=== PATIENT | female | born 1985 | race Caucasian/White ===

== ENCOUNTER 2020-11-28 04:31 | Emergency (ER) | payer OTHER ==
[~2020-11-28] VITALS: Ht 177.8 cm; Wt 99.8 kg
[2020-11-28 04:31] VITALS: BP_SYST 164
--- NOTE | 2020-11-28 04:31 | NUR ---
Patient to ER bed 8 to gown for evaluation. Side rails up. Report given to november.
--- NOTE | 2020-11-28 04:40 | NUR ---
Patient BIB by family from home. C/O redness and swelling right mid axillary x 5 days. Per patient reported, possible spider bite, right mid axillary pain, redness, swelling, pain rate 8/10.
--- NOTE | 2020-11-28 04:43 | NUR ---
ER Dr. Meraz at bedside examining patient.
[2020-11-28] MEDS ORDERED: LIDOCAINE/EPI 1% 1:100000 20 ML VIAL INJ ONE (05:20)
--- NOTE | 2020-11-28 05:28 | NUR ---
I&D Procedure done by Dr Kt luna using sterile technique. Lidocaine 1% with Epinephrine used. Wound packed with . Adaptic, 4x4 and onofre to wound. amt of bleeding noted. Wound care discussed w/ patient. Pt tolerated procedure well. KATE Montague assisted Dr. Meraz at bedside.
[2020-11-28] MEDS: LIDOCAINE/EPI 1% 1:100000 20 ML VIAL INJ ONE (05:47)
[2020-11-28] MEDS ORDERED: SULF1TAB48 PO (05:50)
[2020-11-28] MEDS: SULFAMETHOXAZOLE/TRIMETHOPR DS 1 TABLET PO ONE (05:53)
[2020-11-28 06:01] VITALS: BP_SYST 164
--- NOTE | 2020-11-28 06:01 | NUR ---
Patient given written and verbal discharge instructions and verbalizes understanding. ER MD discussed with patient the results and treatment provided. Patient in stable condition. ID arm band removed. Rx of Bactrim given. Patient educated on pain management and to follow up with PMD. Pain Scale . Opportunity for questions provided and answered. Medication side effect fact sheet provided.
== END 2020-11-28 06:01 | disposition home or self-care (01) ==
LOC: SED 04:31
DX: L02.219 Cutaneous abscess of trunk, unspecified (principal); L03.319 Cellulitis of trunk, unspecified
CPT/HCPCS: 99283